=== PATIENT | male | born 1970 | race African-American/Black ===

== ENCOUNTER 2018-07-05 21:54 | Emergency (ER) | payer OTHER ==
[~2018-07-05] VITALS: Ht 170.2 cm; Wt 131.5 kg
[2018-07-05] MEDS ORDERED: PREDNISONE 20 M20 MG PO (23:31)
[2018-07-05] MEDS ORDERED: PEPCID20 MG PO (23:31)
[2018-07-05 23:45] VITALS: BP 133/95
== END 2018-07-05 23:47 | disposition home or self-care (01) ==
LOC: ER 21:54
DX: L50.9 Urticaria, unspecified (principal); F17.210 Nicotine dependence, cigarettes, uncomplicated